=== PATIENT | female | born 1935 | race African-American/Black ===

== ENCOUNTER 2018-06-15 07:10 | Inpatient (IN) | payer OTHER ==
[2018-06-15] VITALS (10 sets, daily range): BP systolic 119–145; BP diastolic 48–73
[~2018-06-15] VITALS: Ht 167.6 cm; Wt 94.8 kg
[2018-06-15] MEDS ORDERED: SODIUM CHLORIDE 0.9% 1,000 ML IV ONE (07:19)
[2018-06-15] MEDS ORDERED: PANTOPRAZOLE SODIUM 40 MG/VIAL IV STA (07:19)
[2018-06-15] MEDS ORDERED: OCTREOTIDE ACETATE 50 MCG/ML 1ML IV STA (07:19)
[2018-06-15 07:41] LABS: BASOPHILS % 0.6 % (0.0-2.0); MEAN CORPUSCULAR HEMOGLOBIN 26.6 pg (28.0-32.0); MEAN CORPUSCULAR VOLUME 84.1 fL (81.0-99.0); MEAN PLATELET VOLUME 7.8 fl (7.4-10.4); MONOCYTES % 5.5 % (2.0-8.0); NEUTROPHILS % 58.9 % (40.0-76.0); PLATELET 381 x1000/uL (130-400); RED BLOOD CELL COUNT 2.43 mill/uL (4.2-5.4); RED CELL DISTRIBUTION WIDTH 17.2 % (11.6-14.6)
[2018-06-15 07:49] LABS: INR 1.3; PROTHROMBIN TIME 13.4 sec (9.1-11.1)
[2018-06-15 07:50] LABS: CHLORIDE 106 mEq/L (98-107)
[2018-06-15 08:01] LABS: HEMATOCRIT. 20.4 % (36.0-48.0); HEMOGLOBIN. 6.5 g/dL (12.0-16.0)
[2018-06-15] MEDS ORDERED: MORPHINE SULFATE 4 MG/ML CPJ (NOT FOR IM USE) IV ONE (09:45)
[2018-06-15] MEDS ORDERED: DEXT 5%/0.45% NACL 1000ML 1,000 ML IV SCH (09:52)
[2018-06-15] MEDS ORDERED: ONDANSETRON HCL 4MG/2ML INJ IV PRN (10:00)
[2018-06-15] MEDS ORDERED: DOCUSATE SODIUM 100MG CAPSULE PO PRN (10:00)
[2018-06-15] MEDS ORDERED: IPRATROPIUM/ALBUTEROL 0.5-3(2.5)MG/3ML NEB INH PRN (10:00)
[2018-06-15] MEDS ORDERED: MORPHINE SULFATE 4 MG/ML CPJ (NOT FOR IM USE) IV PRN (10:00)
[2018-06-15] MEDS ORDERED: DEXTROSE 50% WATER 50ML SYRINGE IV PRN (10:00)
[2018-06-15] MEDS ORDERED: MAGNESIUM/ALUMINUM HYDROXIDE/SIMETHICONE 30ML UDC PO PRN (10:00)
[2018-06-15] MEDS ORDERED: LORAZEPAM 0.5MG TABLET PO PRN (10:00)
[2018-06-15] MEDS ORDERED: ACETAMINOPHEN 325MG TABLET PO PRN (10:00)
[2018-06-15] MEDS ORDERED: CLONIDINE 0.1MG TABLET PO PRN (10:00)
[2018-06-15] MEDS ORDERED: SIMETHICONE 40 MG/0.6 ML 30ML ONE ×2 (11:15→13:59)
[2018-06-15] MEDS ORDERED: BACTERIOSTATIC SODIUM CHLORIDE 0.9% 30ML VIAL IJ ONE (11:15)
[2018-06-15] MEDS ORDERED: PANTOPRAZOLE 80 MG in SODIUM CHLORIDE 0.9% 100 ML IV SCH (12:00)
[2018-06-15] MEDS: BLOOD SUGAR DIAGNOSTIC STRIP TEST SCH ×3 (12:30→21:32)
[2018-06-15] MEDS: INSULIN LISPRO 100 UNITS/ML SUBCUT SCH ×3 (13:00→21:31)
[2018-06-15] MEDS ORDERED: MIDAZOLAM HCL 5 MG/5 ML VIAL IV PRN (14:27)
[2018-06-15] MEDS ORDERED: FENTANYL CITRATE/PF 50MCG/ML 2ML VIAL ONE (14:30)
[2018-06-15] MEDS ORDERED: MIDAZOLAM HCL 5 MG/5 ML VIAL ONE (14:30)
[2018-06-15] MEDS: PANTOPRAZOLE 80 MG in SODIUM CHLORIDE 0.9% 100 ML IV SCH ×2 (17:23→23:45)
[2018-06-15 19:43] LABS: HEMATOCRIT 19.7 % (36.0-48.0); HEMOGLOBIN 6.4 g/dL (12.0-16.0)
[2018-06-15 19:52] LABS: CREATINE KINASE MB FRACTION 1.1 ng/mL (0.5-3.6)
[2018-06-15] MEDS: TRAMADOL 50MG TABLET PO PRN (20:40)
[2018-06-15] MEDS ORDERED: PANTOPRAZOLE SODIUM 40 MG/VIAL IV SCH (21:00)
[2018-06-15] MEDS ORDERED: ZOLPIDEM TARTRATE 5MG TABLET PO PRN (21:00)
[2018-06-16] VITALS (16 sets, daily range): BP systolic 96–169; BP diastolic 45–86
[2018-06-16] MEDS: TRAMADOL 50MG TABLET PO PRN ×2 (05:25→19:32)
[2018-06-16] MEDS: BLOOD SUGAR DIAGNOSTIC STRIP TEST SCH ×4 (06:51→21:46)
[2018-06-16] MEDS: INSULIN LISPRO 100 UNITS/ML SUBCUT SCH ×4 (08:00→21:00)
[2018-06-16] MEDS: PANTOPRAZOLE 80 MG in SODIUM CHLORIDE 0.9% 100 ML IV SCH (10:17)
[2018-06-16 11:08] LABS: HEMOGLOBIN. 8.8 g/dL (12.0-16.0); MEAN CORPUSCULAR HEMOGLOBIN 28.8 pg (28.0-32.0); MEAN CORPUSCULAR VOLUME 84.6 fL (81.0-99.0); MEAN PLATELET VOLUME 7.7 fl (7.4-10.4); PLATELET 251 x1000/uL (130-400); RED BLOOD CELL COUNT 3.07 mill/uL (4.2-5.4); RED CELL DISTRIBUTION WIDTH 15.3 % (11.6-14.6)
[2018-06-16 11:12] LABS: BASOPHILS % 0.6 % (0.0-2.0); EOSINOPHILS % 2.1 % (0.0-5.0); LYMPHOCYTES % 28.2 % (20.0-50.0); MONOCYTES % 8.2 % (2.0-8.0); NEUTROPHILS % 60.9 % (40.0-76.0)
[2018-06-16 14:22] LABS: CHLORIDE 112 mEq/L (98-107)
[2018-06-16] MEDS: SUCRALFATE 1 G/10 ML UDC PO SCH ×2 (14:39→17:42)
== END 2018-06-16 23:00 | disposition short-term general hospital (02) | DRG 368 ==
LOC: ER 07:36 → 5EST 08:44 → EDBEDREQ 08:52 → ENRESERV 09:51
PROVIDERS: ADMIT Internal Medicine; ATTEND Internal Medicine
PROC: 30233N1 Transfusion of Nonautologous Red Blood Cells into Peripheral Vein, Percutaneous Approach (ICD-10-PCS; 2018-06-15)
PROC: 0DJ08ZZ Inspection of Upper Intestinal Tract, Via Natural or Artificial Opening Endoscopic (ICD-10-PCS; principal; 2018-06-15 15:00)
DX: K22.6 Gastro-esophageal laceration-hemorrhage syndrome (principal); E43 Unspecified severe protein-calorie malnutrition; D62 Acute posthemorrhagic anemia; K44.9 Diaphragmatic hernia without obstruction or gangrene; I10 Essential (primary) hypertension; G89.4 Chronic pain syndrome; E11.65 Type 2 diabetes mellitus with hyperglycemia; K25.4 Chronic or unspecified gastric ulcer with hemorrhage; Z79.02 Long term (current) use of antithrombotics/antiplatelets; Z79.01 Long term (current) use of anticoagulants; Z79.4 Long term (current) use of insulin; Z68.33 Body mass index [BMI] 33.0-33.9, adult
CPT/HCPCS: 36415; 71045; 80061; 82550; 82553; 82962; 83036; 84134; 84484; 85014; 85018; 86850; 86900; 86920; 93970; 96361; 96374; 96375; 99285; A6261; C1893; C9113; J1815; J2250; J2270; J2354; J2405; J3010; J3490; J7030; J7050; P9016